=== PATIENT | female | born 1990 | race Caucasian/White ===

== ENCOUNTER 2021-05-09 14:24 | Outpatient (CLI) | payer OTHER, SELFPAY | END 2021-05-09 14:25 | disposition home or self-care (01) | LOC: ANHLAB 14:30 | PROVIDERS: PCP Family Medicine; Visit Provider Obstetrics & Gynecology | DX: Z20.2 Contact with and (suspected) exposure to infections with a predominantly sexual mode of transmission (principal) | CPT/HCPCS: 87491; 87591; 87661 ==

== ENCOUNTER → 2022-08-27 15:18 | Outpatient (CLI) | payer OTHER, SELFPAY ==
--- NOTE | ~2022-08-27 | US_ITS ---
EXAMINATION: US pelvic complete w TV DATE: 08/27/2022 16:05 INDICATION: N92.6 - Irregular menstruation, unspecified TECHNIQUE: Multiple transabdominal and endovaginal sonographic images of the pelvis were obtained. COMPARISON: None. FINDINGS: Uterus: 7.0 x 2.9 x 4.0 cm. Endometrial complex measures 3 mm. Very small volume of fluid in the endo metrial cavity. Right Ovary: 2.0 x 1.7 x 1.9 cm. Vascular flow is present. Left Ovary: 1.8 x 1.6 x 1.9 cm. Vascular flow is present. There is no free fluid in the pelvis. IMPRESSION: Normal pelvic sonogram findings. Reviewed, dictated and finalized at location K.
== END ==
PROVIDERS: PCP Student in an Organized Health Care Education/Training Program; Visit Provider Student in an Organized Health Care Education/Training Program
DX: N92.6 Irregular menstruation, unspecified (principal)
CPT/HCPCS: 76830; 76856

== ENCOUNTER 2022-09-03 15:43 | Outpatient (CLI) | payer OTHER, SELFPAY ==
[2022-09-03 17:05] LABS: Beta HCG Quantitative < 2.39 mIU/ML
== END 2022-09-03 15:44 | disposition home or self-care (01) ==
LOC: ANHLAB 15:44
PROVIDERS: PCP Student in an Organized Health Care Education/Training Program; Visit Provider Student in an Organized Health Care Education/Training Program
DX: Z30.430 Encounter for insertion of intrauterine contraceptive device (principal)
CPT/HCPCS: 36415; 84702

== ENCOUNTER 2022-09-10 14:50 | Outpatient (CLI) | payer OTHER, SELFPAY ==
--- NOTE | ~2022-09-10 | US_ITS ---
EXAMINATION: US pelvic complete w TV DATE: 09/10/2022 15:47 INDICATION: Pelvic pain. Comparison:08/27/2022 TECHNIQUE: Multiple transabdominal and endovaginal sonographic images of the pelvis performed. FINDINGS: The uterus measures 7.5 x 3.1 x 4.3 cm. There is an IUD present in the endometrium. The end ometrial complex measures 4.8 mm. The right ovary measures 2.3 x 2.6 x 2.1 cm and the left ovary measures 2.1 x 1.7 x 1.4 cm. There ar e small follicles in each ovary. Normal doppler signal in both ovaries. There is no free fluid in the pelvis. There are no abnormal masses seen on either side. IMPRESSION: 1. Normal pelvic ultrasound Reviewed, dictated and finalized at location B. IMPRESSION: 1. Normal pelvic ultrasound
== END 2022-09-10 14:51 ==
LOC: MICIMG 14:53
PROVIDERS: PCP Student in an Organized Health Care Education/Training Program; Visit Provider Student in an Organized Health Care Education/Training Program
DX: Z30.431 Encounter for routine checking of intrauterine contraceptive device (principal)
CPT/HCPCS: 76830; 76856